=== PATIENT | male | born 1950 | race Caucasian/White ===

== ENCOUNTER 2017-08-18 09:59 | Day surgery (SDC) | payer MEDICARE, BC ==
[~2017-08-18] VITALS: Ht 177.8 cm; Wt 110.2 kg
[~2017-08-18 09:59] MED LIST: ATOR20 PO; TAMS.4ER PO; ZESTORETIC 20-121 EA PO
== END 2017-08-18 11:40 | disposition home or self-care (01) ==
LOC: ORSCMMR 09:59
PROVIDERS: Internal Medicine Gastroenterology
PROC: 0DBK8ZX Excision of Ascending Colon, Via Natural or Artificial Opening Endoscopic, Diagnostic (ICD-10-PCS; principal; 2017-08-18 12:00)
DX: Z12.11 Encounter for screening for malignant neoplasm of colon (principal); D12.2 Benign neoplasm of ascending colon; K57.30 Diverticulosis of large intestine without perforation or abscess without bleeding; K64.8 Other hemorrhoids; Z80.0 Family history of malignant neoplasm of digestive organs; E78.00 Pure hypercholesterolemia, unspecified; I10 Essential (primary) hypertension; G47.33 Obstructive sleep apnea (adult) (pediatric); E66.9 Obesity, unspecified; Z68.34 Body mass index [BMI] 34.0-34.9, adult; Z79.899 Other long term (current) drug therapy
CPT/HCPCS: 88305; J2250; J7120

== ENCOUNTER → 2019-05-04 | Outpatient (CLI) | payer MEDICARE, BC | END | disposition home or self-care (01) | LOC: LAB SHORT 11:15 → LAB 11:15 | DX: D72.810 Lymphocytopenia (principal); H52.10 Myopia, unspecified eye; D51.8 Other vitamin B12 deficiency anemias | CPT/HCPCS: 82607; 82746 ==

== ENCOUNTER → 2019-05-10 | Outpatient (CLI) | payer MEDICARE, BC ==
[2019-05-13 11:07] LABS: M-SPIKE, % Not Observed % (Not Observed); PROTEIN,TOTAL,URINE 5.6 mg/dL (Not Estab.)
== END | disposition home or self-care (01) ==
LOC: LAB SHORT 07:40 → LAB 07:40 → LAB FUT 05-04 12:00
PROVIDERS: Internal Medicine Hematology & Oncology
DX: D72.810 Lymphocytopenia (principal); H52.10 Myopia, unspecified eye
CPT/HCPCS: 81050; 84166

== ENCOUNTER → 2019-11-28 | Outpatient (CLI) | payer MEDICARE, BC | END | disposition home or self-care (01) | LOC: LAB 16:23 → LAB SHORT 16:23 | DX: D51.8 Other vitamin B12 deficiency anemias (principal) | CPT/HCPCS: 82607; 82746 ==

== ENCOUNTER 2021-03-04 07:09 | Day surgery (SDC) | payer MEDICARE, BC ==
[~2021-03-04] VITALS: Ht 182.9 cm; Wt 104.1 kg
[2021-03-04] MEDS ORDERED: LATA.005SO (07:41)
--- NOTE | 2021-03-04 07:50 | NUR ---
03/04/21 0750 Mariely Gonzalez FIRST ATTEMPT MISSED BY CHUCK IN THE RIGHT HAND. SECOND ATTEMPT SUCCESSFUL IN RIGHT FOREARM FOR THE RN.
== END 2021-03-04 09:15 | disposition home or self-care (01) ==
LOC: ORSCSDS 07:09
PROVIDERS: Internal Medicine Gastroenterology
PROC: 0DBP8ZX Excision of Rectum, Via Natural or Artificial Opening Endoscopic, Diagnostic (ICD-10-PCS; principal; 2021-03-04 08:30)
DX: Z12.11 Encounter for screening for malignant neoplasm of colon (principal); Z86.010 Personal history of colon polyps; K62.1 Rectal polyp; K57.30 Diverticulosis of large intestine without perforation or abscess without bleeding; K64.8 Other hemorrhoids; I10 Essential (primary) hypertension; G47.33 Obstructive sleep apnea (adult) (pediatric); E66.9 Obesity, unspecified; Z68.31 Body mass index [BMI] 31.0-31.9, adult; Z87.891 Personal history of nicotine dependence; Z79.899 Other long term (current) drug therapy
CPT/HCPCS: 88305; J2405; J2704; J7120

== ENCOUNTER → 2021-12-25 | Outpatient (CLI) | payer MEDICARE, BC ==
[~2021-12-25] MED LIST changes: +LATA.005SO
== END | disposition home or self-care (01) ==
LOC: LAB SHORT 10:10 → LAB 10:10
DX: R30.0 Dysuria (principal)
CPT/HCPCS: 87086

== ENCOUNTER → 2022-01-09 | Outpatient (CLI) | payer MEDICARE, BC ==
[2022-01-09 13:37] LABS: Source, Urine Clean Catch
[2022-01-09 15:32] LABS: Appearance, Urine Turbid (Clear); Bilirubin, Urine Neg (Neg); Blood, Urine Neg (Neg); Color, Urine Yellow (P-Yellow); Glucose Qualitative, Urine Neg (Neg); Ketones, Urine Neg (Neg); Leukocyte Esterase, Urine Neg (Neg); Nitrite, Urine Neg (Neg); Protein, Urine Neg (Neg); Urobilinogen, Urine NORM (Normal)
[2022-01-09 15:43] LABS: Amorphous Heavy (0-Heavy); Bacteria Few /hpf; Red Blood Cells, Urine 0-2 /hpf (0-2); Squamous Epithelial Cells Rare /hpf (Few); White Blood Cells, Urine 0-2 /hpf (0-5)
== END | disposition home or self-care (01) ==
LOC: LAB 13:36 → LAB SHORT 13:36
PROVIDERS: Internal Medicine
DX: R31.29 Other microscopic hematuria (principal)
CPT/HCPCS: 81001

== ENCOUNTER → 2024-01-13 | Outpatient (CLI) | payer MEDICARE, BC | LOC: LAB 18:58 → LAB SHORT 18:58 | DX: R30.0 Dysuria (principal) | CPT/HCPCS: 87086 ==